=== PATIENT | female | born 1980 | race Two or more races ===

== ENCOUNTER 2023-05-15 13:29 | Emergency (ER) | payer OTHER ==
[~2023-05-15] VITALS: Ht 162.6 cm; Wt 67.6 kg
[2023-05-15] MEDS ORDERED: PREMPRO 0.3 MG1 EACH (13:43)
[2023-05-15 15:27] LABS: HEMATOCRIT 34.2 % (36.0-45.00); HEMOGLOBIN 11.8 g/dL (12.0-15.00); MEAN CELL VOLUME 87.4 fL (80.00-100.00); MEAN CORPUSCULAR HEMOGLOBIN 30.1 pg (27.00-32.0); MEAN CORPUSCULAR HGB CONC 34.4 g/dl (32.0-36.0); PLATELET COUNT 259 K/uL (150-450); RED BLOOD COUNT 3.91 M/uL (4.00-6.00); RED CELL DISTRIBUTION WIDTH 13.4 % (11.5-14.5)
[2023-05-15 15:29] LABS: CALCIUM 8.7 mg/dL (8.5-10.1); CREATININE SERUM 0.73 mg/dL (0.55-1.02); GFR 87.85; POTASSIUM 3.52 mEq/L (3.5-5.1)
[2023-05-15 16:39] LABS: PH,URINE 6.5 (5.0-8.0); URINE APPEARANCE Clear; URINE BILIRRUBIN Negative (NEGATIVE); URINE BLOOD NHT; URINE COLOR Yellow; URINE GLUCOSE Negative (NEGATIVE); URINE LEUKOCYTE Small; URINE NITRATE Negative; URINE PROTEIN 30 (NEGATIVE); URINE UROBILINOGEN 0.2 E.U./dl
[2023-05-15 16:42] LABS: URINE BACTERIA 134.8 uL (0.0-1933); URINE EPITHELIAL CELLS 25.1 uL (0.0-38.8); URINE RBC 25.8 uL (0.0-20.8); URINE WBC 353.2 uL (0.0-23.2)
[2023-05-15 17:12] LABS: URINE MUCUS HEAVY
[2023-05-15] MEDS ORDERED: ONDANSETRON HCL4 MG PO (19:20)
[2023-05-15] MEDS ORDERED: DUI500 PO (19:20)
[2023-05-15] MEDS ORDERED: PEPCID AC20 MG PO (19:20)
== END 2023-05-15 19:38 | disposition home or self-care (01) ==
LOC: ER 13:30
PROVIDERS: Nurse Practitioner Family
DX: N39.0 Urinary tract infection, site not specified (principal); R10.9 Unspecified abdominal pain; Z85.41 Personal history of malignant neoplasm of cervix uteri